=== PATIENT | male | born 1995 | race Caucasian/White ===

== ENCOUNTER 2017-07-31 13:50 | Emergency (ER) | payer BC ==
[2017-07-31 13:51] VITALS: BP 144/76; PULSE 71; RESP 16; TEMP 98.7; O2SAT 97
[2017-07-31] MEDS ORDERED: IOHEXOL 350 MG/ML 10 ML VIAL (for RAD DIAG) IVCONTRAST ONE (13:51)
[2017-07-31 14:22] LABS: AUTOMATED NEUTROPHIL # 4.6 TH/MM3 (1.8-7.7); BASOPHIL % 0.5 % (0.0-2.0); EOSINOPHIL % 0.7 % (0.0-4.0); HEMATOCRIT 46.4 % (39.0-51.0); HEMO FLAGS DIFF FINAL; LYMPH % 19.8 % (9.0-44.0); LYMPHOCYTE # 1.3 TH/MM3 (1.0-4.8); MEAN CELL VOLUME 85.5 FL (80.0-100.0); MEAN CORPUSCULAR HEMOGLOBIN 29.7 PG (27.0-34.0); MEAN CORPUSCULAR HGB CONC 34.7 % (32.0-36.0); MONO % 6.9 % (0.0-8.0); NEUT % 72.1 % (16.0-70.0); PLATELET COUNT 210 TH/MM3 (150-450); RED BLOOD COUNT 5.42 MIL/MM3 (4.50-5.90); RED CELL DISTRIBUTION WIDTH 13.4 % (11.6-17.2); WHITE BLOOD COUNT 6.3 TH/MM3 (4.0-11.0)
[2017-07-31 14:44] LABS: ALT (GPT) 18 U/L (12-78); ANION GAP 7 MEQ/L (5-15); AST (GOT) 10 U/L (15-37); BICARBONATE 26.7 MEQ/L (21.0-32.0); BLOOD UREA NITROGEN 13 MG/DL (7-18); CHLORIDE 107 MEQ/L (98-107); GLOMERULAR FILTRATION RATE 88 ML/MIN (>89); POTASSIUM 3.8 MEQ/L (3.5-5.1); SODIUM (NA) 141 MEQ/L (136-145)
[2017-07-31 14:46] LABS: ALKALINE PHOSPHATASE 69 U/L (45-117)
[2017-07-31] MEDS ORDERED: LIDOCAINE VISCOUS 2% SOLN 15 ML UDC PO ONE (15:30)
[2017-07-31] MEDS ORDERED: ALUMINUM/MAGNESIUM/SIMETH 30 ML CUP PO ONE (15:30)
[2017-07-31] MEDS ORDERED: FAMOTIDINE 20 MG/2 ML VIAL IV PUSH ONE (15:30)
--- NOTE | 2017-07-31 15:47 | PD ---
HPI Chief Complaint: Abdominal Pain Time Seen by Provider: 15:11 Travel History International Travel<30 days: No Contact w/Intl Traveler<30days: No Traveled to known affect area: No History of Present Illness HPI Patient is a 22-year-old male who presents to emergency room with complaints of abdominal pain. Patient reports that he has been having upper abdominal pain and cramping for the past year. Patient reports that symptoms are worse after he eats a meal. Reports that he has had overall decreased PO intake due to his pain after he eats. Reports that he was taking prilosec as this was helping with his symptoms but stopped taking. Reports that he continues to have pain to his right upper abdomen after he eats. Patient's mother reports that she tried making an appointment with the trauma therapist, reports that she cannot make an earlier appointment as everyone is booked. Mom is concerned that patient may have a gastric ulcer. Reports that patient is under a high level of stress as he has college tests upcoming this week and thinks that this may exacerbate his symptoms. Patients mother demanding an EGD and a GI consult in the emergency room. Patient with no fever/chills. No nausea or vomiting at this time. PFSH Past Medical History Medical History: Denies Significant Hx Past Surgical History Surgical History: No Previous Surgery Social History Alcohol Use: No Tobacco Use: No Substance Use: No Allergies-Medications (Allergen,Severity, Reaction): Coded Allergies: amoxicillin (Verified Allergy, Unknown, 07/31/17) Reported Meds & Prescriptions Reported Meds & Active Scripts Active No Active Prescriptions or Reported Medications Review of Systems General / Constitutional: No: Fever, Chills Gastrointestinal: Positive: Abdominal Pain, Loss of Appetite, No: Nausea, Constipation Physical Exam Narrative GENERAL: NAD SKIN: Focused skin assessment warm/dry. HEAD: Atraumatic. Normocephalic. EYES: Pupils equal and round. No scleral icterus. No injection or drainage. ENT: No nasal bleeding or discharge. Mucous membranes pink and moist. NECK: Trachea midline. No JVD. CARDIOVASCULAR: Regular rate and rhythm. No murmur appreciated. RESPIRATORY: No accessory muscle use. Clear to auscultation. Breath sounds equal bilaterally. GASTROINTESTINAL: Abdomen soft, non-tender, nondistended. Hepatic and splenic margins not palpable. MUSCULOSKELETAL: No obvious deformities. No clubbing. No cyanosis. No edema. NEUROLOGICAL: Awake and alert. No obvious cranial nerve deficits. Motor grossly within normal limits. Normal speech. PSYCHIATRIC: Appropriate mood and affect; insight and judgment normal. Data Data Last Documented VS Vital Signs Date Time Temp Pulse Resp B/P (MAP) Pulse Ox O2 Delivery O2 Flow Rate FiO2 07/31/17 17:28 65 18 131/69 (89) 98 Nasal Cannula 07/31/17 13:51 98.7 Orders Orders Complete Blood Count With Diff (07/31/17 13:58) Comprehensive Metabolic Panel (07/31/17 13:58) Lipase (07/31/17 13:58) Ct Abd/Pel W Iv Contrast(Rout) (07/31/17 15:26) Famotidine Inj (Pepcid Inj) (07/31/17 15:30) Al-Mag Hy-Si 40-40-4 Mg/Ml Liq (Mag-Al P (07/31/17 15:30) Lidocaine 2% Viscous (Xylocaine 2% Visco (07/31/17 15:30) Iohexol 350 Inj (Omnipaque 350 Inj) (07/31/17 13:51) Consult Gastroenterology (07/31/17 ) (Hub Use Only)Inp Phy Cons/Ref (07/31/17 ) Labs Laboratory Tests Test 07/31/17 14:00 White Blood Count 6.3 TH/MM3 Red Blood Count 5.42 MIL/MM3 Hemoglobin 16.1 GM/DL Hematocrit 46.4 % Mean Corpuscular Volume 85.5 FL Mean Corpuscular Hemoglobin 29.7 PG Mean Corpuscular Hemoglobin Concent 34.7 % Red Cell Distribution Width 13.4 % Platelet Count 210 TH/MM3 Mean Platelet Volume 7.9 FL Neutrophils (%) (Auto) 72.1 % Lymphocytes (%) (Auto) 19.8 % Monocytes (%) (Auto) 6.9 % Eosinophils (%) (Auto) 0.7 % Basophils (%) (Auto) 0.5 % Neutrophils # (Auto) 4.6 TH/MM3 Lymphocytes # (Auto) 1.3 TH/MM3 Monocytes # (Auto) 0.4 TH/MM3 Eosinophils # (Auto) 0.0 TH/MM3 Basophils # (Auto) 0.0 TH/MM3 CBC Comment DIFF FINAL Differential Comment Blood Urea Nitrogen 13 MG/DL Creatinine 1.06 MG/DL Random Glucose 95 MG/DL Total Protein 8.4 GM/DL Albumin 4.9 GM/DL Calcium Level 9.8 MG/DL Alkaline Phosphatase 69 U/L Aspartate Amino Transf (AST/SGOT) 10 U/L Alanine Aminotransferase (ALT/SGPT) 18 U/L Total Bilirubin 1.0 MG/DL Sodium Level 141 MEQ/L Potassium Level 3.8 MEQ/L Chloride Level 107 MEQ/L Carbon Dioxide Level 26.7 MEQ/L Anion Gap 7 MEQ/L Estimat Glomerular Filtration Rate 88 ML/MIN Lipase 144 U/L [facility] Medical Decision Making Medical Screen Exam Complete: Yes Emergency Medical Condition: Yes Medical Record Reviewed: Yes Interpretation(s) Vital Signs Date Time Temp Pulse Resp B/P (MAP) Pulse Ox O2 Delivery O2 Flow Rate FiO2 07/31/17 13:51 98.7 71 16 144/76 (98) 97 Differential Diagnosis Gastric ulcer, gastritis, duodenal ulcer, anxiety reaction, electrolyte abnormality Narrative Course Patient is a 22-year-old male presents to emergency room with complaints of abdominal pain after eating which has been ongoing for the past year. Patient denies any weight loss, reports that his weight maintains steady at around 170 pounds. Patient reports that everytime he eats, his stomach hurts him. He has taken prilosec in the past which has helped with his symptoms, reports concern for gastric ulcer. During the course of the patients emergency department visit, the patients history, examination, and differential diagnosis were reviewed with the patient. The patient was placed on a electric locomotive firer/fireman with oximetry and frequent blood pressure monitoring. The patient had a 20 guage IV access obtained and blood work sent for analysis. Vital Signs Date Time Temp Pulse Resp B/P (MAP) Pulse Ox O2 Delivery O2 Flow Rate FiO2 07/31/17 13:51 98.7 71 16 144/76 (98) 97 CBC & BMP Diagram 07/31/17 14:00 Total Protein 8.4 H, Albumin 4.9, Calcium Level 9.8, Alkaline Phosphatase 69, Aspartate Amino Transf (AST/SGOT) 10 L, Alanine Aminotransferase (ALT/SGPT) 18, Total Bilirubin 1.0 VSS, labs were reassuring. Patient does not appear dehydrated on evaluation. Discussed with patient and his mother that patient will need an outpatient workup with GI for an endoscopy. Mom is refusing to leave the emergency room without having emergent endoscopy or a GI evaluation. Discussed with patient's mother in detail that patient at this time suffers no emergency and the trauma therapist will not see him emergently but can see him in the office. I will call the trauma therapist hydroelectric station operator to see if I can initiate an earlier visit in the office. Mom is angry that she has to pay for this ER visit if she cannot have this EGD performed right now. Discussed with mom and patient that I rule out any emergent condition at this time but patient will need to follow up with a trauma therapist as an outpatient. Mom requesting that I rule out cancer diagnosis while in the ER. Discussed with mom that I cannot rule out cancer in the ER - he does not have any family history of GI cancer. Mom and patient understand that he will need to follow up with his pcp and gi doctor for further workup as EGD/Colonscopy cannot be performed in the ER for diagnostic purposes. Mom remains frustrated, request that something be done for her son whether it be admission to the hospital for further workup of his symptoms. Discussed with patient's mom and patient that there is no criteria to admit patient this time given his normal vital signs and benign labs. I will order a CT of his abdomen and pelvis to rule out any obvious intraabdominal pathology. Call made to GI to see if I can initiate an earlier appointment. The patient was initially provided IVF, gi cocktail and IV pepcid Radiology studies were reviewed and remarkable for No acute abnormalities. Patient was seen by RESEARCH ANIM[employer]ACILITY SUPERVISOR with Dr. Pemberton, patient suffers no emergencies at this time and can be discharged to home with follow up in the office tomorrow morning at 10:45am I reviewed all labs and studies with patient in detail including all incidental findings. Signs and symptoms of when to return to the ER was reviewed with patient in detail. Critical Care Narrative Aggregate critical care time was 25 minutes. Time to perform other separately billable procedures was not included in the critical care time. My time did not include minutes spent treating any other patients simultaneously or on activities that did not directly contribute to the patient's treatment. I provided critical care services requiring my management, as noted below: Chart data review, documentation time, medication orders and management, vital sign assessments/reviewing monitor data, ordering and reviewing lab tests, ordering and interpreting/reviewing x-rays and diagnostic studies, care of the patient and discussion of the patient with the admitting physicians. Diagnosis Primary Impression: Abdominal pain Qualified Codes: R10.11 - Right upper quadrant pain Patient Instructions: General Instructions Additional Instructions: Please provide patient with a copy of their lab work and studies at discharge* * Please follow up with your primary care doctor in 2-3 days Return to the ER if symptoms worsen or progress Return to the ER as needed Please follow-up with Dr. Choi in the office tomorrow at 10:45 am as scheduled Scripts No Active Prescriptions or Reported Meds Disposition: 01 DISCHARGE HOME Condition: Stable Ruthann Lockwood DO Jul 31, 2017 15:47
--- NOTE | 2017-07-31 16:35 | RADRPT ---
EXAM DATE/TIME: 07/31/2017 16:04 [facility] COMPARISON: No previous studies available for comparison. INDICATIONS : Abdominal pain and cramping for 1 year. IV CONTRAST: 97 cc Omnipaque 350 (iohexol) IV ORAL CONTRAST: No oral contrast ingested. RADIATION DOSE: 6.64 CTDIvol (mGy) MEDICAL HISTORY : None SURGICAL HISTORY : None. ENCOUNTER: Initial ACUITY: 1 yr PAIN SCALE: 7/10 LOCATION: abdomen TECHNIQUE: Volumetric scanning of the abdomen and pelvis was performed. Using automated exposure control and ad justment of the mA and/or kV according to patient size, radiation dose was kept as low as reasonably achievable to obtain optimal diagnostic quality images. DICOM format image data is available electro nically for review and comparison. FINDINGS: LOWER LUNGS: The visualized lower lungs are clear. LIVER: Homogeneous density without lesion. There is no dilation of the biliary tree. No calcified gallston es. SPLEEN: Normal size without lesion. PANCREAS: Within normal limits. KIDNEYS: Normal in size and shape. There is no mass, stone or hydronephrosis. ADRENAL GLANDS: Within normal limits. VASCULAR: There is no aortic aneurysm. BOWEL/MESENTERY: The stomach, small bowel, and colon demonstrate no acute abnormality. There is no free intraperitone al air or fluid. ABDOMINAL WALL: Within normal limits. RETROPERITONEUM: There is no lymphadenopathy. BLADDER: No wall thickening or mass. REPRODUCTIVE: Within normal limits. INGUINAL: There is no lymphadenopathy or hernia. MUSCULOSKELETAL: Within normal limits for patient age. CONCLUSION: Normal examination. Shane Bennett MD on July 31, 2017 at 16:31 Board Certified Radiologist. This report was verified electronically.
--- NOTE | 2017-07-31 16:56 | PD.CONS ---
HPI History of Present Illness This is a 22 year old M who presented to the emergency department with complaints of upper abdominal pain, nausea, and vomiting. He reports the abdominal pain has been intermittent over the past year but increasing in frequency over the past month. He reports associated nausea and vomiting. Denies any aggravating or alleviating factors. Has previously taken Prilosec with relief of symptoms, but is not currently taking. Does report constipation over the past few weeks, improved with magnesium citrate. Denies any weight loss, however reports he has not been eating due to pain and vomiting. Denies ever seeing GI doctor in the past. Denies family history of UC, Crohns, colon cancer. ETOH intake, occasionally, approx four to five episodes of drinking over the past semester. Reports smoking marijuana to help with N/V, also smokes cigars on rare occasion. (Zohra Xie) PFSH Past Surgical History Denies (Zohra Xie) Coded Allergies: amoxicillin (Verified Allergy, Unknown, 07/31/17) Social History ETOH- occasional Marijuana use Occasional cigars (Zorha Xie) Review of Systems Constitutional: DENIES: Weight gain, Weight loss Gastrointestinal: COMPLAINS OF: Abdominal pain, Constipation, Nausea, Vomiting , DENIES: Black stools, Bloody stools, Diarrhea (Zohra Xie) GI Exam Vitals I&O Vital Signs Date Time Temp Pulse Resp B/P (MAP) Pulse Ox O2 Delivery O2 Flow Rate FiO2 07/31/17 13:51 98.7 71 16 144/76 (98) 97 Laboratory Test 07/31/17 14:00 White Blood Count 6.3 TH/MM3 Red Blood Count 5.42 MIL/MM3 Hemoglobin 16.1 GM/DL Hematocrit 46.4 % Mean Corpuscular Volume 85.5 FL Mean Corpuscular Hemoglobin 29.7 PG Mean Corpuscular Hemoglobin Concent 34.7 % Red Cell Distribution Width 13.4 % Platelet Count 210 TH/MM3 Mean Platelet Volume 7.9 FL Neutrophils (%) (Auto) 72.1 % Lymphocytes (%) (Auto) 19.8 % Monocytes (%) (Auto) 6.9 % Eosinophils (%) (Auto) 0.7 % Basophils (%) (Auto) 0.5 % Neutrophils # (Auto) 4.6 TH/MM3 Lymphocytes # (Auto) 1.3 TH/MM3 Monocytes # (Auto) 0.4 TH/MM3 Eosinophils # (Auto) 0.0 TH/MM3 Basophils # (Auto) 0.0 TH/MM3 CBC Comment DIFF FINAL Differential Comment Blood Urea Nitrogen 13 MG/DL Creatinine 1.06 MG/DL Random Glucose 95 MG/DL Total Protein 8.4 GM/DL Albumin 4.9 GM/DL Calcium Level 9.8 MG/DL Alkaline Phosphatase 69 U/L Aspartate Amino Transf (AST/SGOT) 10 U/L Alanine Aminotransferase (ALT/SGPT) 18 U/L Total Bilirubin 1.0 MG/DL Sodium Level 141 MEQ/L Potassium Level 3.8 MEQ/L Chloride Level 107 MEQ/L Carbon Dioxide Level 26.7 MEQ/L Anion Gap 7 MEQ/L Estimat Glomerular Filtration Rate 88 ML/MIN Lipase 144 U/L Physical Examination HEENT: Normocephalic; atraumatic CHEST: CTA CARDIAC: RRR ABDOMEN: Soft, nondistended, mildly TTP epigastric area; no hepatosplenomegaly ; bowel sounds active x 4 EXTREMITIES: No clubbing, cyanosis, or edema. SKIN: Normal; no rash; no jaundice. FORGING DIE SINKER: No focal deficits; alert and oriented times three. (Zohra Xie) Assessment and Plan Plan Assessment: - Epigastric pain/N/V- for the past year, increasing in frequency over the past month. Prilosec was relieving symptoms in the past, not currently taking. Does report THC use to help with symptoms. Denies ever seeing GI doctor in the past. CT scan abdomen/ pelvis done in the ER shows normal exam. Pt needs EGD but this can be done on an outpatient basis. Appt has been scheduled for pt to follow up in our [place] office with Dr. La tomorrow for a consult. Recommend soft, bland diet. Recommended quitting THC use. Plan - Appt to follow up in our office tomorrow at 10:45 - Soft, bland diet - Avoid THC - Supportive care Pt has been seen and examined by myself and Dr. Choi and this note is written on his behalf. (Zohra Xie) Physician Comments Patient seen and examined Agree with above Patient follow-up in clinic tomorrow Most likely he will need an EGD He was also advised to stop THC (Gautam Choi MD) Zohra Xie Jul 31, 2017 16:56 Gautam Choi MD Jul 31, 2017 17:30
[2017-07-31 17:28] VITALS: BP 131/69
== END 2017-07-31 17:32 | disposition home or self-care (01) ==
LOC: NEPD 13:50
DX: R10.11 Right upper quadrant pain (principal); F12.90 Cannabis use, unspecified, uncomplicated
CPT/HCPCS: 74177; 80053; 83690; 85025; 96374; 99285; Q9967